=== PATIENT | male | born 1955 | race Caucasian/White ===

== ENCOUNTER → 2016-11-01 | Outpatient (CLI) | payer OTHER ==
--- NOTE | 2016-11-01 09:29 | DX ---
Left Hand, Two Views and Right Hand, Two Views Indication: Bilateral thumb and wrist pain. Findings: Right Hand: There is mild joint space narrowing at the PIP and DIP joints. There are mild arthritic c hanges at the first CMC joint. There are mild arthritic changes at the carpometacarpal joint. Impression: Mild right hand osteoarthritis. Left Hand: No evidence of fracture-dislocation. Mild PIP and DIP osteoarthritis is visualized. Mild o steoarthritis at the first CMC joint. Impression: Mild left hand osteoarthritis.
== END ==
LOC: CIMAGING 07:48
PROVIDERS: ATTEND Family Medicine
DX: M79.644 Pain in right finger(s) (principal); M79.645 Pain in left finger(s); M25.531 Pain in right wrist; M25.532 Pain in left wrist; M19.041 Primary osteoarthritis, right hand; M19.042 Primary osteoarthritis, left hand
CPT/HCPCS: 73120-PO

== ENCOUNTER → 2019-04-04 | Outpatient (CLI) | payer OTHER | LOC: CIMAGING 08:57 ==